=== PATIENT | male | born 1985 | race African-American/Black ===

== ENCOUNTER 2019-01-26 16:15 | Emergency (ER) | payer SELFPAY ==
[~2019-01-26] VITALS: Ht 177.8 cm; Wt 90.7 kg
--- NOTE | 2019-01-26 16:15 | NUR ---
Patient BIB [facility] for pre-booking medical screening exam, transferred to chair E. RN evaluating patient.
[2019-01-26 16:17] VITALS: BP 140/71
[2019-01-26 17:29] VITALS: BP 140/71
--- NOTE | 2019-01-26 17:29 | NUR ---
PATIENT BIB [facility] [employer]. PATIENT EXAMINED BY . PATIENT MEDICALLY CLEARED AND RELEASED IN CUSTODY IN STABLE CONDITION. ORIGINAL PRE-BOOK FORM GIVEN TO OFFICER .
== END 2019-01-26 17:30 ==
LOC: MED 16:15
DX: S29.012A Strain of muscle and tendon of back wall of thorax, initial encounter (principal); S00.83XA Contusion of other part of head, initial encounter; S00.81XA Abrasion of other part of head, initial encounter; Z02.89 Encounter for other administrative examinations; Z60.2 Problems related to living alone; Y35.811A Legal intervention involving manhandling, law enforcement official injured, initial encounter; Y93.89 Activity, other specified; Y92.89 Other specified places as the place of occurrence of the external cause; Y99.8 Other external cause status
CPT/HCPCS: 99283